=== PATIENT | male | born 1965 | race African-American/Black ===

== ENCOUNTER 2017-07-14 15:34 | Emergency (ER) | payer MEDICAID ==
[~2017-07-14] VITALS: Ht 185.4 cm; Wt 115.0 kg
[~2017-07-14 15:34] MED LIST: ALBU6.7H INH; ALBU8I INH; DUONI NEB; PRED20 PO; VENTAER INH; ZITHTAB6 PO
[2017-07-14 15:36] VITALS: BP 140/78; PULSE 117; RESP 30; TEMP 98.2; O2SAT 96
[2017-07-14] MEDS ORDERED: SODIUM CHLORID 0.9% 500 ML INJ 500 ML IV ONE (15:45)
[2017-07-14] MEDS ORDERED: SODIUM CHLORIDE 0.9% FLUSH 10 ML FLUSH IVF PRN (15:45)
[2017-07-14] MEDS ORDERED: methylPREDNISolone SOD SUCC 125 MG/2 ML VIAL IV PUSH ONE (15:45)
--- NOTE | 2017-07-14 15:57 | PD ---
HPI Chief Complaint: Chest Pain Time Seen by Provider: 15:41 Travel History International Travel<30 days: No Contact w/Intl Traveler<30days: No Traveled to known affect area: No History of Present Illness HPI The patient is a 51-year-old [place] male who presents to the emergency department for shortness of breath for several days duration. The patient has a history of asthma and COPD, quit smoking several years ago. The patient recently moved from [place], [place], to the local area. He traveled via private vehicle at the beginning of June to [place], [place]. He does complain of productive cough producing yellow sputum, shortness of breath, and wheezing. He denies any edema to lower extremities and denies any previous history of pulmonary embolism, DVT, or congestive heart failure. He denies any assisted fever, chills, or sweats. Symptoms are moderate. There are currently no alleviating or exacerbating factors. He does complain of mild chest tightness associated with the wheezing. He denies any diaphoresis. PFSH Past Medical History Hx Anticoagulant Therapy: No Asthma: Yes Cardiovascular Problems: No Chemotherapy: No COPD: Yes Cerebrovascular Accident: No Diabetes: No Diminished Hearing: No Respiratory: Yes (COPD ) Myocardial Infarction: No Past Surgical History Other Surgery: Yes (chest tube l lung) Social History Alcohol Use: No (OCCASIONAL ) Tobacco Use: No Substance Use: No Allergies-Medications (Allergen,Severity, Reaction): Coded Allergies: penicillin G (Unverified Allergy, Unknown, UNKNOWN REACTION, 12/11/16) Reported Meds & Prescriptions Reported Meds & Active Scripts Active Reported Proventil Hfa 6.7 GM Inh (Albuterol Sulfate) 90 Mcg/Act Aer 2 Puff INH Q4-6H PRN Montelukast (Montelukast Sodium) 10 Mg Tab 10 Mg PO HS Molt (Hydrocodone-Acetaminophen) 10-325 Mg Tab 1 Tab PO Q4H PRN Flexeril (Cyclobenzaprine HCl) 10 Mg Tab 10 Mg PO DAILY Review of Systems Except as stated in HPI: all other systems reviewed are Neg General / Constitutional: No: Fever HENT: No: Lightheadedness, Congestion Cardiovascular: Positive: Chest Pain or Discomfort (tightness) Respiratory: Positive: Cough, Shortness of Breath, Wheezing Gastrointestinal: No: Nausea, Vomiting, Abdominal Pain Musculoskeletal: No: Edema Physical Exam Narrative GENERAL: Awake, alert, pleasant 51-year-old male who appears his stated age and is in mild respiratory distress. SKIN: Focused skin assessment warm/dry. HEAD: Atraumatic. Normocephalic. EYES: Pupils equal and round. No scleral icterus. No injection or drainage. ENT: No nasal bleeding or discharge. Mucous membranes pink and moist. NECK: Trachea midline. No JVD. CARDIOVASCULAR: Regular, tachycardic with a heart rate of 105. RESPIRATORY: Mild tachypnea with a respiratory rate of 22. Prolonged expiratory phase with diffuse wheezing. GASTROINTESTINAL: Abdomen soft, non-tender, nondistended. MUSCULOSKELETAL: No obvious deformities. No clubbing. No cyanosis. No edema. NEUROLOGICAL: Awake and alert. No obvious cranial nerve deficits. Motor grossly within normal limits. Normal speech. PSYCHIATRIC: Appropriate mood and affect; insight and judgment normal. Data Data Last Documented VS Vital Signs Date Time Temp Pulse Resp B/P (MAP) Pulse Ox O2 Delivery O2 Flow Rate FiO2 07/14/17 16:25 78 18 96 Room Air 07/14/17 16:08 2.00 07/14/17 15:36 98.2 140/78 (98) Orders Orders Complete Blood Count With Diff (07/14/17 15:44) Comprehensive Metabolic Panel (07/14/17 15:44) B-Type Natriuretic Peptide (07/14/17 15:44) Magnesium (Mg) (07/14/17 15:44) Ckmb (Isoenzyme) Profile (07/14/17 15:44) Troponin I (07/14/17 15:44) Iv Access Insert/Monitor (07/14/17 15:44) Electrocardiogram (07/14/17 15:44) Ecg Monitoring (07/14/17 15:44) Oximetry (07/14/17 15:44) Oxygen Administration (07/14/17 15:44) Chest, Single Ap (07/14/17 15:44) Sodium Chloride 0.9% Flush (Ns Flush) (07/14/17 15:45) Methylprednisolone So Succ Inj (Solumedr (07/14/17 15:45) Albuterol-Ipratropium Neb (Duoneb Neb) (07/14/17 15:45) Sodium Chlorid 0.9% 500 Ml Inj (Ns 500 M (07/14/17 15:45) CKMB (07/14/17 15:55) CKMB% (07/14/17 15:55) Labs Laboratory Tests Test 07/14/17 15:55 White Blood Count 9.3 TH/MM3 Red Blood Count 5.32 MIL/MM3 Hemoglobin 13.9 GM/DL Hematocrit 41.8 % Mean Corpuscular Volume 78.7 FL Mean Corpuscular Hemoglobin 26.0 PG Mean Corpuscular Hemoglobin Concent 33.1 % Red Cell Distribution Width 15.4 % Platelet Count 263 TH/MM3 Mean Platelet Volume 7.8 FL Neutrophils (%) (Auto) 56.0 % Lymphocytes (%) (Auto) 21.4 % Monocytes (%) (Auto) 10.1 % Eosinophils (%) (Auto) 12.1 % Basophils (%) (Auto) 0.4 % Neutrophils # (Auto) 5.2 TH/MM3 Lymphocytes # (Auto) 2.0 TH/MM3 Monocytes # (Auto) 0.9 TH/MM3 Eosinophils # (Auto) 1.1 TH/MM3 Basophils # (Auto) 0.0 TH/MM3 CBC Comment DIFF FINAL Differential Comment Blood Urea Nitrogen 8 MG/DL Creatinine 1.14 MG/DL Random Glucose 93 MG/DL Total Protein 6.7 GM/DL Albumin 3.2 GM/DL Calcium Level 8.8 MG/DL Magnesium Level 2.1 MG/DL Alkaline Phosphatase 71 U/L Aspartate Amino Transf (AST/SGOT) 43 U/L Alanine Aminotransferase (ALT/SGPT) 27 U/L Total Bilirubin 0.4 MG/DL Sodium Level 140 MEQ/L Potassium Level 4.5 MEQ/L Chloride Level 107 MEQ/L Carbon Dioxide Level 25.7 MEQ/L Anion Gap 7 MEQ/L Estimat Glomerular Filtration Rate 83 ML/MIN Total Creatine Kinase 302 U/L Creatine Kinase MB 1.2 NG/ML Troponin I LESS THAN 0.02 NG/ML B-Type Natriuretic Peptide LESS THAN 2 PG/ML MDM Medical Decision Making Medical Screen Exam Complete: Yes Emergency Medical Condition: Yes Medical Record Reviewed: Yes Interpretation(s) EKG reveals sinus tachycardia with a heart rate of 108. Laboratory Tests Test 07/14/17 15:55 White Blood Count 9.3 TH/MM3 Red Blood Count 5.32 MIL/MM3 Hemoglobin 13.9 GM/DL Hematocrit 41.8 % Mean Corpuscular Volume 78.7 FL Mean Corpuscular Hemoglobin 26.0 PG Mean Corpuscular Hemoglobin Concent 33.1 % Red Cell Distribution Width 15.4 % Platelet Count 263 TH/MM3 Mean Platelet Volume 7.8 FL Neutrophils (%) (Auto) 56.0 % Lymphocytes (%) (Auto) 21.4 % Monocytes (%) (Auto) 10.1 % Eosinophils (%) (Auto) 12.1 % Basophils (%) (Auto) 0.4 % Neutrophils # (Auto) 5.2 TH/MM3 Lymphocytes # (Auto) 2.0 TH/MM3 Monocytes # (Auto) 0.9 TH/MM3 Eosinophils # (Auto) 1.1 TH/MM3 Basophils # (Auto) 0.0 TH/MM3 CBC Comment DIFF FINAL Differential Comment Blood Urea Nitrogen 8 MG/DL Creatinine 1.14 MG/DL Random Glucose 93 MG/DL Total Protein 6.7 GM/DL Albumin 3.2 GM/DL Calcium Level 8.8 MG/DL Magnesium Level 2.1 MG/DL Alkaline Phosphatase 71 U/L Aspartate Amino Transf (AST/SGOT) 43 U/L Alanine Aminotransferase (ALT/SGPT) 27 U/L Total Bilirubin 0.4 MG/DL Sodium Level 140 MEQ/L Potassium Level 4.5 MEQ/L Chloride Level 107 MEQ/L Carbon Dioxide Level 25.7 MEQ/L Anion Gap 7 MEQ/L Estimat Glomerular Filtration Rate 83 ML/MIN Total Creatine Kinase 302 U/L Creatine Kinase MB 1.2 NG/ML Troponin I LESS THAN 0.02 NG/ML B-Type Natriuretic Peptide LESS THAN 2 PG/ML Chest x-ray reveals no acute cardiopulmonary disease Differential Diagnosis Differential diagnosis includes COPD exacerbation, asthma exacerbation, bronchitis, pneumonia, pulmonary embolism, pneumothorax, pleural effusion, acute coronary syndrome, pericardial effusion. Narrative Course IV was established, labs are drawn and sent, and the patient was placed on cardiac telemetry monitoring and continuous pulse oximetry monitoring. EKG was ordered and interpreted. Chest x-ray was obtained. The patient was administered site Medrol 125 mg intravenously and duo nebs 3. Chest x-ray reveals no acute cardiopulmonary disease. Troponin is negative. BNP is negative. The patient is reevaluated at 5:40 PM. The patient's symptoms did improve. His heart rate was 100, breast as reassessed, had improved. The patient is advised to return if symptoms worsen or progress. Diagnosis Primary Impression: COPD exacerbation Patient Instructions: General Instructions Additional Instructions: Medications as directed. Follow-up with your primary physician. Please provide the patient a copy of his x-ray results and lab results at discharge. Return if symptoms worsen or progress. Med/Other Pt SpecificInfo: Prescription(s) given Scripts Albuterol 8.5 GM Inh (Proair Hfa 8.5 GM Inh) 90 Mcg/Act Aer 2 PUFF INH Q6H Y for SHORTNESS OF BREATH, #1 INHALER 0 Refills 108 mcg/actuation Prov: Brayan Elaine MD 07/14/17 Azithromycin (Zithromax Z-Dandre) 250 Mg Dspk 250 MG PO DIRECTED for Infection, #1 DSPK 0 Refills 500 MG (2 tabs) day 1, then 1 tab days 2-5. Prov: Brayan Elaine MD 07/14/17 Prednisone (Prednisone) 20 Mg Tab 40 MG PO DAILY, #10 TAB 0 Refills Take 40 mg (2 tablets) daily for 5 days Prov: Brayan Elaine MD 07/14/17 Disposition: 01 DISCHARGE HOME Condition: Stable Brayan Elaine MD Jul 14, 2017 15:57
[2017-07-14] MEDS ORDERED: CYCL10TA PO (16:10)
[2017-07-14] MEDS ORDERED: HYDR-3366 PO (16:10)
[2017-07-14] MEDS ORDERED: MONT10TA4 PO (16:10)
[2017-07-14] MEDS ORDERED: ALBU6.7H INH (16:10)
--- NOTE | 2017-07-14 16:10 | RADRPT ---
EXAM DATE/TIME: 07/14/2017 15:55 [facility] COMPARISON: CHEST SINGLE AP, March 14, 2015, 7:43. INDICATIONS : Shortness of breath. MEDICAL HISTORY : Chronic obstructive pulmonary disease. SURGICAL HISTORY : None. ENCOUNTER: Initial ACUITY: 1 day PAIN SCORE: 0/10 LOCATION: Bilateral chest FINDINGS: A single view of the chest demonstrates the lungs to be symmetrically aerated without evidence of mas s, infiltrate or effusion. The cardiomediastinal contours are unremarkable. Osseous structures are intact. CONCLUSION: 1. No acute cardiopulmonary findings. Aashish Grant MD on July 14, 2017 at 16:07 Board Certified Radiologist. This report was verified electronically.
[2017-07-14 16:15] LABS: AUTOMATED NEUTROPHIL # 5.2 TH/MM3 (1.8-7.7); BASOPHIL % 0.4 % (0.0-2.0); EOSINOPHIL # 1.1 TH/MM3 (0-0.4); EOSINOPHIL % 12.1 % (0.0-4.0); HEMATOCRIT 41.8 % (39.0-51.0); HEMOGLOBIN 13.9 GM/DL (13.0-17.0); LYMPH % 21.4 % (9.0-44.0); MEAN CELL VOLUME 78.7 FL (80.0-100.0); MEAN CORPUSCULAR HGB CONC 33.1 % (32.0-36.0); MEAN PLATELET VOLUME 7.8 FL (7.0-11.0); MONO % 10.1 % (0.0-8.0); MONOCYTE # 0.9 TH/MM3 (0-0.9); PLATELET COUNT 263 TH/MM3 (150-450); RED BLOOD COUNT 5.32 MIL/MM3 (4.50-5.90); RED CELL DISTRIBUTION WIDTH 15.4 % (11.6-17.2); WHITE BLOOD COUNT 9.3 TH/MM3 (4.0-11.0)
[2017-07-14 16:23] LABS: ALT (GPT) 27 U/L (12-78)
[2017-07-14] MEDS: RESP: ALBUTEROL 2.5 MG/IPRATROPIUM 0.5 MG NEB (SCH) INH ×2 (16:24→16:25)
[2017-07-14 16:28] LABS: ALBUMIN 3.2 GM/DL (3.4-5.0); ALKALINE PHOSPHATASE 71 U/L (45-117); AST (GOT) 43 U/L (15-37); BICARBONATE 25.7 MEQ/L (21.0-32.0); BLOOD UREA NITROGEN 8 MG/DL (7-18); CALCIUM 8.8 MG/DL (8.5-10.1); CHLORIDE 107 MEQ/L (98-107); CREATININE 1.14 MG/DL (0.60-1.30); GLOMERULAR FILTRATION RATE 83 ML/MIN (>89); GLUCOSE,RANDOM 93 MG/DL (74-106); MAGNESIUM 2.1 MG/DL (1.5-2.5); SODIUM (NA) 140 MEQ/L (136-145); TOTAL BILIRUBIN ADULT 0.4 MG/DL (0.2-1.0); TOTAL PROTEIN 6.7 GM/DL (6.4-8.2); TROPONIN I LESS THAN 0.02 NG/ML (0.02-0.05)
[2017-07-14] MEDS ORDERED: ALBUAER3 INH (17:44)
[2017-07-14] MEDS ORDERED: PRED20 PO (17:44)
[2017-07-14] MEDS ORDERED: ZITHTAB PO (17:44)
--- NOTE | 2017-07-15 10:44 | EKG ---
Date Performed: 07/14/2017 Time Performed: 15:48:40 PTAGE: 51 years EKG: SINUS TACHYCARDIA POSSIBLE LEFT ATRIAL ENLARGEMENT POSSIBLE RIGHT VENTRICULAR CONDUCTION DE LAY ABNORMAL RHYTHM ECG Compared to PREVIOUS TRACING the patient is now tachycardic PREVIOUS TRACIN03/14/2015 07.30 DOCTOR: Leah Dee Interpretating Date/Time 07/15/2017 10:41:54
== END 2017-07-14 18:25 | disposition home or self-care (01) ==
LOC: NEPC 15:34
DX: J44.1 Chronic obstructive pulmonary disease with (acute) exacerbation (principal); Z79.899 Other long term (current) drug therapy; Z87.891 Personal history of nicotine dependence
CPT/HCPCS: 71045; 80053; 82550; 82552; 83735; 83880; 84484; 85025; 93005; 94664; 96361; 96374; 99285; J2930; J7040